=== PATIENT | female | born 2005 | race Caucasian/White ===

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

== ENCOUNTER 2023-02-25 12:04 | Emergency (ER) | payer BC, OTHER ==
[~2023-02-25] VITALS: Ht 170.2 cm; Wt 110.6 kg
[2023-02-25 14:38] LABS: GC DNA AMPLIFICATION NEGATIVE (NEGATIVE)
[2023-02-25 15:14] VITALS: BP 131/82
== END 2023-02-25 15:14 | disposition home or self-care (01) ==
LOC: M ED 12:04
DX: L29.2 Pruritus vulvae (principal); Z79.52 Long term (current) use of systemic steroids; Z79.899 Other long term (current) drug therapy

== ENCOUNTER → 2023-03-15 | Outpatient (CLI) | payer OTHER ==
[~2023-03-15] MED LIST changes: +BENZ200C70 PO; +CEFD300C41
== END ==
LOC: M WHC 16:00
PROVIDERS: ATTEND Advanced Practice Midwife
DX: Z53.9 Procedure and treatment not carried out, unspecified reason (principal); O99.212 Obesity complicating pregnancy, second trimester

== ENCOUNTER → 2023-03-17 | Outpatient (CLI) | payer OTHER ==
[2023-03-17 14:23] LABS: HEMATOCRIT 33.4 % (36.0-47.0); HEMOGLOBIN 11.1 g/dl (12.0-15.5); MEAN CORPUSCULAR HEMOGLOBIN 30.2 pg (27.0-33.0); MEAN CORPUSCULAR HGB CONC 33.2 g/dl (32.0-36.5); MEAN CORPUSCULAR VOLUME 90.8 fl (80.0-96.0); PLATELET COUNT, AUTOMATED 214 10^3/uL (150-450); RED BLOOD COUNT 3.68 10^6/uL (4.00-5.40); WHITE BLOOD COUNT 6.7 10^3/uL (4.0-10.0)
[2023-03-17 15:19] LABS: HIV 1&2 SCREEN NEGATIVE (NEGATIVE)
== END ==
LOC: M PLALAB 11:32
PROVIDERS: ATTEND Advanced Practice Midwife
DX: Z36.9 Encounter for antenatal screening, unspecified (principal)

== ENCOUNTER → 2023-03-17 | Outpatient (CLI) | payer OTHER | LOC: M PLALAB 11:29 | PROVIDERS: ATTEND Advanced Practice Midwife | DX: O99.212 Obesity complicating pregnancy, second trimester (principal) ==

== ENCOUNTER 2023-03-19 01:39 | Emergency (ER) | payer OTHER ==
[~2023-03-19] VITALS: Ht 167.6 cm; Wt 111.0 kg
[~2023-03-19 01:39] MED LIST changes: -BENZ200C70 PO; -CEFD300C41
[2023-03-19] MEDS ORDERED: CEFD300C41 (01:49)
[2023-03-19 03:56] VITALS: BP 142/67; TEMP 98.8; O2SAT 100
[2023-03-19] MEDS ORDERED: BENZONATATE 100MG CAPSULE PO ONE (06:00)
[2023-03-19] MEDS ORDERED: ALBUTEROL 90 MCG/ACT 8GM HFA INHALER INH ONE (06:00)
[2023-03-19] MEDS ORDERED: BENZ200C70 PO (06:03)
== END 2023-03-19 06:25 | disposition home or self-care (01) ==
LOC: M ED 01:39
DX: J06.9 Acute upper respiratory infection, unspecified (principal); B34.8 Other viral infections of unspecified site; F17.200 Nicotine dependence, unspecified, uncomplicated; F12.10 Cannabis abuse, uncomplicated; F10.10 Alcohol abuse, uncomplicated; Z79.899 Other long term (current) drug therapy

== ENCOUNTER → 2023-04-19 | Outpatient (REF) | payer OTHER ==
[~2023-04-19] MED LIST changes: +BENZ200C70 PO; +CEFD300C41
[2023-04-19 19:07] LABS: GC DNA AMPLIFICATION NEGATIVE (NEGATIVE)
== END ==
LOC: M SFHCWAGY 16:59
PROVIDERS: ATTEND Advanced Practice Midwife
DX: Z34.01 Encounter for supervision of normal first pregnancy, first trimester (principal)

== ENCOUNTER → 2023-04-28 | Outpatient (CLI) | payer OTHER | LOC: M WHC 09:56 | PROVIDERS: ATTEND Advanced Practice Midwife | DX: O99.212 Obesity complicating pregnancy, second trimester (principal) ==

== ENCOUNTER → 2023-05-26 | Outpatient (CLI) | payer OTHER | LOC: M WHC 09:37 | PROVIDERS: ATTEND Advanced Practice Midwife | DX: Z34.02 Encounter for supervision of normal first pregnancy, second trimester (principal); Z36.2 Encounter for other antenatal screening follow-up ==

== ENCOUNTER → 2023-07-21 | Outpatient (REF) | payer OTHER ==
[~2023-07-21] MED LIST changes: -CEFD300C41; +CEFD300C42
[2023-07-21 19:00] LABS: RSV AMPLIFICATION NEGATIVE (NEGATIVE)
== END ==
LOC: M LAB REF 18:10
PROVIDERS: ATTEND Physician Assistant
DX: J06.9 Acute upper respiratory infection, unspecified (principal)

== ENCOUNTER → 2023-08-24 | Outpatient (REF) | payer OTHER ==
[~2023-08-24] MED LIST changes: +CEFD1CAP9; -CEFD300C42
== END ==
LOC: M PLALAB 08:49
PROVIDERS: ATTEND Advanced Practice Midwife
DX: Z34.80 Encounter for supervision of other normal pregnancy, unspecified trimester (principal); Z3A.00 Weeks of gestation of pregnancy not specified

== ENCOUNTER → 2024-06-14 | Outpatient (CLI) | payer OTHER ==
[2024-06-14 17:25] LABS: HEMOGLOBIN 10.9 g/dl (12.0-15.5); MEAN CORPUSCULAR HEMOGLOBIN 28.2 pg (27.0-33.0); MEAN CORPUSCULAR HGB CONC 32.1 g/dl (32.0-36.5); MEAN CORPUSCULAR VOLUME 88.1 fl (80.0-96.0); PLATELET COUNT, AUTOMATED 262 10^3/uL (150-450); RED BLOOD COUNT 3.86 10^6/uL (4.00-5.40); WHITE BLOOD COUNT 7.1 10^3/uL (4.0-10.0)
[2024-06-14 17:59] LABS: HIV 1&2 SCREEN NEGATIVE (NEGATIVE)
[2024-06-14 18:06] LABS: HEPATITIS C VIRUS ABY INDEX < 0.02 INDEX (<0.8)
[2024-06-14 19:20] LABS: GC DNA AMPLIFICATION NEGATIVE (NEGATIVE)
== END ==
LOC: M PLALAB 14:12
PROVIDERS: ATTEND Advanced Practice Midwife
DX: Z34.81 Encounter for supervision of other normal pregnancy, first trimester (principal)

== ENCOUNTER → 2024-06-14 | Outpatient (REF) | payer OTHER | LOC: M PLALAB 13:51 | PROVIDERS: ATTEND Advanced Practice Midwife | DX: Z34.81 Encounter for supervision of other normal pregnancy, first trimester (principal); Z53.9 Procedure and treatment not carried out, unspecified reason ==

== ENCOUNTER → 2024-07-15 | Outpatient (CLI) | payer OTHER | LOC: M RAD 09:43 | PROVIDERS: ATTEND Advanced Practice Midwife | DX: Z34.82 Encounter for supervision of other normal pregnancy, second trimester (principal); Z3A.18 18 weeks gestation of pregnancy ==

== ENCOUNTER → 2024-08-16 | Outpatient (CLI) | payer OTHER | LOC: M WHC 09:56 | PROVIDERS: ATTEND Advanced Practice Midwife | DX: Z34.82 Encounter for supervision of other normal pregnancy, second trimester (principal); Z3A.22 22 weeks gestation of pregnancy ==

== ENCOUNTER → 2024-09-30 | Outpatient (CLI) | payer BC, OTHER | LOC: M RAD 14:15 | PROVIDERS: ATTEND Specialist | DX: Z34.82 Encounter for supervision of other normal pregnancy, second trimester (principal); Z3A.29 29 weeks gestation of pregnancy ==

== ENCOUNTER → 2024-10-04 | Outpatient (CLI) | payer BC ==
[2024-10-04 16:29] LABS: HEMATOCRIT 31.9 % (36.0-47.0); HEMOGLOBIN 10.2 g/dl (12.0-15.5); MEAN CORPUSCULAR HEMOGLOBIN 28.6 pg (27.0-33.0); MEAN CORPUSCULAR VOLUME 89.4 fl (80.0-96.0); PLATELET COUNT, AUTOMATED 215 10^3/uL (150-450); RED BLOOD COUNT 3.57 10^6/uL (4.00-5.40); WHITE BLOOD COUNT 8.7 10^3/uL (4.0-10.0)
[2024-10-04 17:31] LABS: HIV 1&2 SCREEN NEGATIVE (NEGATIVE)
[2024-10-04 17:39] LABS: HEPATITIS C VIRUS ABY INDEX 0.02 INDEX (<0.8)
[2024-10-04 18:03] LABS: GC DNA AMPLIFICATION NEGATIVE (NEGATIVE)
== END ==
LOC: M PLALAB 13:18
PROVIDERS: ATTEND Advanced Practice Midwife
DX: Z34.82 Encounter for supervision of other normal pregnancy, second trimester (principal)
CPT/HCPCS: 36415; 82950; 85027; 86780; 86803; 86850; 86900; 86901; 87389; 87810; 87850; J2790

== ENCOUNTER → 2024-10-25 | Outpatient (REF) | payer BC ==
[2024-10-25 16:03] LABS: APPEARANCE, URINE HAZY (CLEAR); BACTERIA, URINE AUTO NEGATIVE (NEGATIVE); BILIRUBIN, URINE AUTO NEGATIVE (NEGATIVE); BLOOD, URINE BLOOD NEGATIVE (NEGATIVE); COLOR, URINE YELLOW (YELLOW); GLUCOSE, URINE (UA) AUTO NEGATIVE (NEGATIVE); KETONE, URINE AUTO NEGATIVE (NEGATIVE); LEUKOCYTE ESTERASE, URINE AUTO NEGATIVE (NEGATIVE); MUCUS, URINE SMALL (NEGATIVE); NITRITE, URINE AUTO NEGATIVE (NEGATIVE); PROTEIN, URINE AUTO NEGATIVE (NEGATIVE); RBC, URINE AUTO 0 /HPF (0-3); SPECIFIC GRAVITY URINE AUTO 1.015 (1.002-1.035); SQUAMOUS EPITHELIAL CELL UR AU 4 /HPF (0-6); UROBILINOGEN, URINE AUTO 0.2 mg/dL (0.0-2.0); WBC, URINE AUTO 1 /HPF (0-3)
== END ==
LOC: M SFHCWAGY 14:38
PROVIDERS: ATTEND Obstetrics & Gynecology
DX: N39.498 Other specified urinary incontinence (principal)

== ENCOUNTER → 2024-11-22 | Outpatient (REF) | payer BC | LOC: M SFHCWAGY 17:15 | PROVIDERS: ATTEND Specialist | DX: Z34.83 Encounter for supervision of other normal pregnancy, third trimester (principal) ==

== ENCOUNTER 2024-12-11 07:24 | Inpatient (IN) | payer BC ==
[2024-12-11] VITALS (47 sets, daily range): BP systolic 101–142; BP diastolic 56–95; O2SAT 96–99
[~2024-12-11] VITALS: Ht 170.2 cm; Wt 122.1 kg
[2024-12-11] MEDS ORDERED: ACET-907 PO (07:56)
[2024-12-11] MEDS ORDERED: TUMS500C PO (07:56)
[2024-12-11] MEDS ORDERED: HOME MED LIST COMPLETE! XX SCH (08:00)
[2024-12-11] MEDS ORDERED: CARBOPROST TROMETHAMINE 250 MCG/ML AMP IM PRN (08:15)
[2024-12-11] MEDS ORDERED: LIDOCAINE 1% MDV 20ML VIAL INFIL PRN (08:15)
[2024-12-11] MEDS ORDERED: OXYTOCIN DRIP 30 UNITS in IV 1 EA IV PRN (08:15)
[2024-12-11] MEDS ORDERED: miSOPROStol 50MCG 1/2 TABLET PO SCH (08:15)
[2024-12-11] MEDS ORDERED: METHYLERGONOVINE MALEATE 0.2MG/ML 1ML VIAL IM PRN (08:15)
[2024-12-11] MEDS ORDERED: OXYTOCIN INJ 10UNITS/ML 1ML VIAL IM PRN (08:15)
[2024-12-11 08:56] LABS: HEMATOCRIT 30.7 % (36.0-47.0); HEMOGLOBIN 10.1 g/dl (12.0-15.5); MEAN CORPUSCULAR HEMOGLOBIN 27.7 pg (27.0-33.0); MEAN CORPUSCULAR HGB CONC 32.9 g/dl (32.0-36.5); MEAN CORPUSCULAR VOLUME 84.1 fl (80.0-96.0); PLATELET COUNT, AUTOMATED 179 10^3/uL (150-450); RED BLOOD COUNT 3.65 10^6/uL (4.00-5.40)
[2024-12-11] MEDS: miSOPROStol 50MCG 1/2 TABLET PO SCH (09:28)
[2024-12-11 09:44] LABS: HIV 1&2 SCREEN NEGATIVE (NEGATIVE)
[2024-12-11 09:52] LABS: HEPATITIS C VIRUS ABY INDEX 0.04 INDEX (<0.8)
[2024-12-11] MEDS: LR 1,000 ML IV SCH (13:38)
[2024-12-11] MEDS: OXYTOCIN DRIP 30 UNITS in IV 1 EA IV SCH (13:52)
[2024-12-11] MEDS ORDERED: FENTANYL 2MCG/ML ROPIVACAINE 0.2% IN 0.9% NACL 100ML IVBAG As Ordered ONE (17:49)
[2024-12-11] MEDS ORDERED: ONDANSETRON 4MG 2ML VIAL IV PRN (17:55)
[2024-12-11] MEDS ORDERED: ePHEDrine SULFATE 25 MG/5 ML(5MG/ML) SYRINGE IVP PRN (17:55)
[2024-12-11] MEDS ORDERED: NALOXONE INJ 0.4MG/1ML VIAL IV PRN (17:55)
[2024-12-11] MEDS ORDERED: diphenhydrAMINE 50MG/ML VIAL IV PRN (17:55)
[2024-12-11] MEDS ORDERED: EPIDURAL/PCA KEYS XX PRN (17:55)
[2024-12-11] MEDS ORDERED: LR 500 ML IV PRN (17:55)
[2024-12-11] MEDS: FENTANYL/ROPIVACAINE/NACL BAG 100 ML EPIDURAL SCH (19:02)
[2024-12-11] MEDS ORDERED: fentaNYL 100 MCG/2 ML INJECTION As Ordered ONE (21:35)
[2024-12-11] MEDS: TRANEXAMIC ACID INJection 1,000 MG in NS 100 ML IV PRN (22:23)
[2024-12-11] MEDS ORDERED: DOCUSATE SODIUM 100MG CAPSULE PO PRN (22:50)
[2024-12-11] MEDS ORDERED: IBUPROFEN 600MG TAB PO PRN (22:50)
[2024-12-11] MEDS ORDERED: METHYLERGONOVINE MALEATE 0.2 MG TAB PO PRN (22:50)
[2024-12-11] MEDS ORDERED: ACETAMINOPHEN 325 MG TAB PO PRN (22:50)
[2024-12-12 00:10] VITALS: BP 120/69
[2024-12-12 00:25] VITALS: BP 121/69
[2024-12-12 00:59] VITALS: BP 123/71; O2SAT 97
[2024-12-12] MEDS: DIBUCAINE 1% OINTMENT 30GM TOP PRN (07:03)
[2024-12-12] MEDS: IBUPROFEN 800 MG TAB PO PRN (07:19)
[2024-12-12] MEDS: PRENATAL VITAMINS CHEWABLE TABLET PO SCH (07:19)
[2024-12-12 07:30] VITALS: BP 121/76; O2SAT 100
[2024-12-12] MEDS: ACETAMINOPHEN 500 MG TAB PO PRN (12:41)
[2024-12-12] MEDS: RHOGAM 300MCG (1500IU) INJ IM SCH (14:54)
[2024-12-12 18:00] VITALS: BP 135/66; O2SAT 98
[2024-12-13 06:00] VITALS: BP 125/79; O2SAT 98
[2024-12-13] MEDS: MEASLES,MUMPS,RUBELLA VACCINE INJ (MMR-II) SC.IMMUN ONE (09:00)
[2024-12-13] MEDS ORDERED: IBUP80TA PO (13:06)
== END 2024-12-13 14:23 | disposition home or self-care (01) | DRG 560 ==
LOC: M LDI 07:24 → M OBS 12-12 00:53
PROVIDERS: ADMIT Advanced Practice Midwife; ATTEND Advanced Practice Midwife
PROC: 10E0XZZ Delivery of Products of Conception, External Approach (ICD-10-PCS; principal; 2024-12-11)
PROC: 3E0P7GC Introduction of Other Therapeutic Substance into Female Reproductive, Via Natural or Artificial Opening (ICD-10-PCS; 2024-12-11)
PROC: 0KQM0ZZ Repair Perineum Muscle, Open Approach (ICD-10-PCS; 2024-12-11)
PROC: 10907ZC Drainage of Amniotic Fluid, Therapeutic from Products of Conception, Via Natural or Artificial Opening (ICD-10-PCS; 2024-12-11)
DX: O69.81X0 Labor and delivery complicated by cord around neck, without compression, not applicable or unspecified (principal); O70.1 Second degree perineal laceration during delivery; Z3A.39 39 weeks gestation of pregnancy; Z37.0 Single live birth